=== PATIENT | male | born 1995 | race Caucasian/White ===

== ENCOUNTER 2017-12-02 10:12 | Emergency (ER) | payer SELFPAY, OTHER | END 2017-12-02 15:00 | disposition left against medical advice (07) | LOC: FTE 10:12 | DX: Z53.21 Procedure and treatment not carried out due to patient leaving prior to being seen by health care provider (principal) ==

== ENCOUNTER 2017-12-16 08:26 | Emergency (ER) | payer MEDICAID, OTHER ==
[2017-12-16] MEDS: MECLIZINE 12.5 MG TAB PO (10:13)
[2017-12-16 10:37] LABS: ADD MAN DIFF? NO
[2017-12-16 10:45] LABS: BASOPHILS % 0.4 % (0.0-2.0); EOSINOPHILS # 0.2 10^3/ul (0.0-0.5); EOSINOPHILS % 2.3 % (0.0-7.0); HEMATOCRIT 45.7 % (42.0-52.0); HEMOGLOBIN 15.3 g/dl (14.0-18.0); LYMPHOCYTES # 3.2 10^3/ul (0.8-2.9); LYMPHOCYTES % 40.8 % (15.0-51.0); MEAN CORPUSCULAR HEMOGLOBIN 26.9 pg (29.0-33.0); MEAN CORPUSCULAR HGB CONC 33.5 g/dl (32.0-37.0); MEAN CORPUSCULAR VOLUME 80.3 fl (82.0-101.0); MEAN PLATELET VOLUME 9.9 fl (7.4-10.4); MONOCYTE # 1.1 10^3/ul (0.3-0.9); MONOCYTES % 14.1 % (0.0-11.0); NEUTROPHIL # 3.3 10^3/ul (1.6-7.5); NEUTROPHILS % 42.1 % (39.0-77.0); PLATELET COUNT 336 10^3/UL (140-415); RED BLOOD COUNT 5.69 10^6/ul (4.70-6.10); RED CELL DISTRIBUTION WIDTH 13.3 % (11.5-14.5)
[2017-12-16 10:45] LABS: WHITE BLOOD COUNT 7.8 10^3/ul (4.8-10.8)
[2017-12-16 11:00] LABS: ALANINE AMINOTRANSFERASE 47 IU/L (13-69); ALBUMIN/GLOBULIN RATIO 1.25; ALKALINE PHOSPHATASE 142 IU/L (42-121); ANION GAP 15 (8-16); ASPARTATE AMINO TRANSFERASE 28 IU/L (15-46); BILIRUBIN,INDIRECT 0.1 mg/dl (0-1.1); BILIRUBIN,TOTAL 0.1 mg/dl (0.2-1.3); BLOOD UREA NITROGEN 9 mg/dl (7-20); CALCIUM 9.5 mg/dl (8.4-10.2); CARBON DIOXIDE 26 mmol/L (21-31); CHLORIDE 107 mmol/L (97-110); GLUCOSE 96 mg/dl (70-220); POTASSIUM 3.9 mmol/L (3.5-5.1); SODIUM 144 mmol/L (135-144); TOTAL PROTEIN 7.2 g/dl (6.1-8.1)
[2017-12-16 11:51] LABS: T3 UPTAKE 51.1 % (23.5-40.5); T4 (THYROXINE) 18.6 ug/dl (5.5-11.0)
[2017-12-16 12:05] LABS: THYROID STIMULATING HORMONE < 0.015 MIU/L (0.465-4.680)
[2017-12-17 13:38] LABS: THYROID MICROSOMAL ANTIBODY 302 IU/mL (<9)
[2017-12-18 16:01] LABS: THYROID BINDING GLOBULIN 27.2 mcg/mL (12.7-25.1)
== END 2017-12-16 12:55 | disposition home or self-care (01) ==
LOC: FTE 08:26
DX: E05.90 Thyrotoxicosis, unspecified without thyrotoxic crisis or storm (principal)
CPT/HCPCS: 80053; 82962; 84436; 84442; 84443; 84479; 85025; 86376; 99283

== ENCOUNTER 2018-01-27 14:17 | Emergency (ER) | payer MEDICAID | END 2018-01-28 00:50 | disposition home or self-care (01) | LOC: E/R 01-28 00:50 | DX: Z76.0 Encounter for issue of repeat prescription (principal); I10 Essential (primary) hypertension | CPT/HCPCS: 99281; Z7502 ==

== ENCOUNTER 2018-07-14 10:01 | Emergency (ER) | payer MEDICAID | END 2018-07-14 11:30 | disposition home or self-care (01) | LOC: FTE 10:01 | DX: K21.9 Gastro-esophageal reflux disease without esophagitis (principal); I10 Essential (primary) hypertension | CPT/HCPCS: 93005; 99283-25 ==

== ENCOUNTER 2018-11-14 22:40 | Emergency (ER) | payer OTHER, MEDICAID | END 2018-11-15 00:35 | disposition home or self-care (01) | LOC: FTE 22:40 | DX: R07.0 Pain in throat (principal); I10 Essential (primary) hypertension | CPT/HCPCS: 99282 ==

== ENCOUNTER 2018-12-07 19:16 | Emergency (ER) | payer SELFPAY, OTHER | END 2018-12-07 21:17 | disposition left against medical advice (07) | LOC: FTE 21:17 | DX: Z53.21 Procedure and treatment not carried out due to patient leaving prior to being seen by health care provider (principal) ==

== ENCOUNTER 2018-12-08 09:50 | Emergency (ER) | payer OTHER ==
[2018-12-08] MEDS: DIPHTH/TET/ACEL PERTUSS (ADULT) 0.5 ML VIAL IM* (11:57)
[2018-12-08] MEDS: BACITRACIN 0.9 GM OINT TOP (11:57)
[2018-12-08] MEDS: LIDOCAINE 2% JELLY 5 ML TOP (11:57)
== END 2018-12-08 13:32 | disposition home or self-care (01) ==
LOC: FTE 13:32
DX: S61.211A Laceration without foreign body of left index finger without damage to nail, initial encounter (principal); I10 Essential (primary) hypertension; W26.0XXA Contact with knife, initial encounter; Y92.000 Kitchen of unspecified non-institutional (private) residence as the place of occurrence of the external cause; Z23 Encounter for immunization
CPT/HCPCS: 90471; 90715; 99283-25